=== PATIENT | male | born 1970 | race Caucasian/White ===

== ENCOUNTER → 2019-10-13 08:03 | Outpatient (CLI) | payer OTHER, SELFPAY ==
--- NOTE | 2019-10-13 | DI.MRI.S_ITS ---
PROCEDURE: MR KNEE LT WO CON INDICATIONS: Pain in left knee TECHNIQUE: Noncontrast sagittal PD fast spin echo and T2 fast spin echo with fat saturation, sagittal 3-D FLASH with fat saturation; coronal T1 spin echo and PD fast spin echo with fat saturation, and axial PD fast spin echo with fat saturation through the knee. COMPARISON: [facility], CR, XR KNEE ARTHRITIC SERIES LT, 10/04/2019, 15:04. FINDINGS: Image quality: Excellent. Menisci: Linear horizontally oriented high T2 signal intensity traverses the posterior horn medial meniscus, demonstrating inferior articular surface extension. Lateral meniscus is intact. Cruciate ligaments: The anterior and posterior cruciate ligaments appear intact. Medial structures: The medial collateral ligament appears intact. Visualized portions of the pes anserinus tendons appear normal. Mild T2 signal alteration within the semimembranosus at the tibial insertion site. No abnormal bursal fluid. Lateral structures: The lateral collateral ligament, long and short heads of the biceps femoris tendon appear intact. The popliteus tendon appears normal. Iliotibial band appears normal. Anterior structures: The quadriceps and patellar tendons appear intact. Mild T2 signal alteration within the patellar tendon at the patellar insertion site. Patellar alignment is normal. No femoral trochlear dysplasia or ventral trochlear prominence. No edema in the infrapatellar fat pad. Bones and cartilage: No bone marrow contusions or fractures. There is mild tricompartmental periarticular osteophyte formation. Mild articular cartilage loss diffusely overlies the weightbearing aspects of the medial and lateral compartments. Joint space: There is a small knee joint effusion and a small Bustos's cyst. Normal appearing synovial plicae are incidentally noted. IMPRESSION: 1. Tricompartmental osteoarthritis with associated articular cartilage loss. 2. Medial meniscal tearing. 3. Patellar tendinitis. 4. Semimembranosus tendinopathy. 5. Knee joint effusion and Bustos's cyst. Dictated by: Lucina Curtis M.D. on 10/13/2019 at 9:32 Approved by: Lucina Curtis M.D. on 10/13/2019 at 10:15
== END ==
PROVIDERS: Referring Provider Orthopaedic Surgery; Visit Provider Orthopaedic Surgery
DX: M25.562 Pain in left knee (principal); S83.242A Other tear of medial meniscus, current injury, left knee, initial encounter; M17.12 Unilateral primary osteoarthritis, left knee; M25.462 Effusion, left knee; M71.22 Synovial cyst of popliteal space [Baker], left knee
CPT/HCPCS: 73721